=== PATIENT | male | born 1960 | race Hispanic/Latino ===

== ENCOUNTER 2021-11-26 13:46 | Emergency (ER) | payer BC ==
[~2021-11-26] VITALS: Ht 177.8 cm; Wt 79.4 kg
[2021-11-26] MEDS ORDERED: HYDROXYZINE HCL 25 MG TAB PO ONE (15:00)
[2021-11-26 15:05] LABS: BASOPHILS # (AUTO) 0.1 (0.0-0.1); BASOPHILS % 0.9 % (0.0-1.0); EOSINOPHILS % 0.2 % (0.0-6.0); HEMATOCRIT 43.6 % (38.2-49.6); HEMOGLOBIN 14.9 g/dL (14.0-18.0); LYMPHOCYTES # (AUTO) 1.2 (1.0-3.2); MEAN CORPUSCULAR HEMOGLOBIN 32.4 pg (28-32); MEAN CORPUSCULAR HGB CONC 34.2 g/dL (31-35); MEAN CORPUSCULAR VOLUME 94.8 fL (81-99); MONOCYTES # (AUTO) 0.2 (0.2-0.8); MONOCYTES % 3.8 % (4.4-11.3); NEUTROPHILS % 72.9 % (38.7-80.0); PLATELET COUNT 206 x10e3/uL (140-360); RED CELL DISTRIBUTION WIDTH 12.5 % (11.7-14.4)
[2021-11-26 15:24] LABS: ALBUMIN 3.6 g/dL (3.5-5.0); ALBUMIN/GLOBULIN RATIO 1.2 (0.8-2.0); ANION GAP 12.6 mmol/L (8-16); CALCIUM 8.4 mg/dL (8.4-10.2); CREATININE, SERUM 0.81 mg/dL (0.72-1.25); POTASSIUM 3.6 mmol/L (3.5-5.1)
[2021-11-26 15:54] LABS: THYROID STIMULATING HORMONE 0.666 uIU/mL (0.350-4.940)
[2021-11-26] MEDS ORDERED: HYDROXYZIN10 MG/5 ML PO (16:09)
== END 2021-11-26 16:37 | disposition home or self-care (01) ==
LOC: ER 13:50
DX: R00.2 Palpitations (principal); F41.9 Anxiety disorder, unspecified; T43.225A Adverse effect of selective serotonin reuptake inhibitors, initial encounter; E78.5 Hyperlipidemia, unspecified
CPT/HCPCS: 36415; 80053; 84436; 84443; 84479; 84484; 85025; 93005; 99283